=== PATIENT | male | born 1960 | race Caucasian/White ===

== ENCOUNTER 2020-10-19 12:29 | Emergency (ER) | payer OTHER, SELFPAY ==
--- NOTE | 2020-10-19 12:36 | ED.EAR ---
HPI - Ear Problem General Chief complaint: Ear Stated complaint: FB in ear Time Seen by Provider: 10/19/20 12:36 Source: patient and RN notes reviewed History of Present Illness HPI Narrative: Patient is a 60-year-old male who presents the urgent care with complaints of a possible foreign body to the right ear. Patient states that 2 nights ago he was using Q-tips to clean out the ears and believes he may have gotten some cotton stuck in the right ear. Patient denies of any other acute complaints. No acute distress noted. Patient aware of the plan of care. Some parts of this dictation were generated by voice recognition software and may contain typographical and/or grammatical inaccuracies. Related Data Home Medications Medication Instructions Recorded Confirmed insulin aspart U-100 [Novolog 35 unit SUBCUT DIRECTED 10/19/20 10/19/20 Flexpen U-100 Insulin] metoprolol tartrate 50 mg PO DAILY 10/19/20 10/19/20 Allergies Allergy/AdvReac Type Severity Reaction Status Date / Time Sulfa (Sulfonamide Allergy Rash Verified 10/19/20 12:41 Antibiotics) Review of Systems Review of Systems: Narrative: CONSTITUTIONAL: Denies fever, chills, or sweats. EYES: Denies visual changes, redness, or discharge. ENT: Denies rhinorrhea, congestion, sore throat. Reports of possible foreign body to the right ear CARDIOVASCULAR: Denies chest pain, palpitations, or edema. RESPIRATORY: Denies cough or dyspnea. GASTROINTESTINAL: Denies abdominal pain, nausea, vomiting, or diarrhea. GENITOURINARY: Denies dysuria or hematuria. SKIN: Denies rash or itching. MUSCULOSKELETAL: Denies back pain, joint pain, or myalgia. NEUROLOGIC: Denies headache, numbness, or weakness. All other systems reviewed are negative, except as documented in HPI. PMFSH Comments At the time of my signature, I reviewed and agree with the nursing past medical, surgical, social, and family history. There is no relevant family history pertinent to the patient complaint. Exam Narrative: Exam Narrative: GENERAL: This is a well-nourished, well-developed patient, in no apparent distress. HEAD: normocephalic, atraumatic. EYES: PERRL. Sclera clear/white. Vision is grossly intact. EARS: External ears normal, auditory canals clear and without drainage, TMs normal without perforation. Hearing grossly intact. No foreign body noted to bilateral ear canals NOSE: External nose normal with no obvious nasal discharge, nares without redness, no rhinorrhea. THROAT: Mucous membranes moist NECK: Neck supple CARDIOVASCULAR: Regular rate and rhythm RESPIRATORY: Clear to auscultation. Breath sounds equal bilaterally. No wheezes, rales, or rhonchi. SKIN: warm, intact with no suspicious lesions or rash, good texture and turgor. NEURO: awake, alert, and oriented to person, place and time. There were no obvious focal neurologic abnormalities. EXTREMITIES: No clubbing, cyanosis, or edema. Course Vital Signs Vital signs: Vital Signs Temperature 98.2 F 10/19/20 12:38 Pulse Rate 89 10/19/20 12:38 Respiratory Rate 18 10/19/20 12:38 Blood Pressure 174/76 H 10/19/20 12:38 Pulse Oximetry 97 10/19/20 12:38 Temperature 98.2 F 10/19/20 12:38 Pulse Rate 89 10/19/20 12:38 Respiratory Rate 18 10/19/20 12:38 Blood Pressure 174/76 H 10/19/20 12:38 Pulse Oximetry 97 10/19/20 12:38 Reviewed-patient is informed that they may have pre-hypertension or hypertension based on a blood pressure reading in the department. I recommend the patient call the primary care provider listed on their discharge instructions or a physician of their choice this week to arrange follow-up for further evaluation of possible pre-hypertension or hypertension. Medical Decision Making MDM Narrative Medical decision making narrative: Advised the patient to stop using Q-tips. Do not put anything else in the ear such as water, peroxide, [id number] eardrops. There is no foreign body noted to the
[2020-10-19 12:38] VITALS: BP 174/76; PULSE 89; RESP 18; TEMP 36.8; O2SAT 97
== END 2020-10-19 12:47 | disposition home or self-care (01) ==
PROVIDERS: Emergency Provider Nurse Practitioner Family
DX: Z03.823 Encounter for observation for suspected inserted (injected) foreign body ruled out (principal); I10 Essential (primary) hypertension; E11.9 Type 2 diabetes mellitus without complications
CPT/HCPCS: 99213; G0463